=== PATIENT | male | born 1980 | race Caucasian/White ===

== ENCOUNTER 2018-11-26 14:05 | Emergency (ER) | payer OTHER ==
[2018-11-26 14:09] VITALS: TEMP 98.6
[2018-11-26] MEDS ORDERED: LIDOCAINE 2% W/ EPI MPF 20 ML SOL ONE (14:21)
[2018-11-26] MEDS ORDERED: FENTANYL 100MCG/2ML SOL IV ONE (14:28)
[2018-11-26] MEDS ORDERED: CEFTRIAXONE 1 GM PDS ONE (14:35)
[2018-11-26] MEDS ORDERED: FENTANYL 100MCG/2ML SOL ONE (14:35)
[2018-11-26] MEDS ORDERED: CEFTRIAXONE 1 GM PDS 1 GM in SODIUM CHLORIDE 0.9% 50 ML 50 ML IV ONE (14:58)
[2018-11-26 16:05] VITALS: RESP 16
[2018-11-26 16:06] VITALS: BP 120/72; PULSE 80; O2SAT 99
== END 2018-11-26 16:00 | disposition home or self-care (01) | DRG 914 ==
LOC: ED 14:05
DX: S68.123A Partial traumatic metacarpophalangeal amputation of left middle finger, initial encounter (principal); W31.89XA Contact with other specified machinery, initial encounter
CPT/HCPCS: 73130; 96365; 96374; 99284; 99285; J0696; J3010; A6402